=== PATIENT | female | born 1995 | race Caucasian/White ===

== ENCOUNTER 2017-02-26 21:26 | Emergency (ER) | payer BC, OTHER ==
[~2017-02-26] VITALS: Ht 165.1 cm; Wt 70.6 kg
[~2017-02-26 21:26] MED LIST: DPPRI400 INJ
[2017-02-26 21:33] VITALS: TEMP 36.9; Ht 165.1 cm; Wt 70.6 kg
[2017-02-26] MEDS ORDERED: ASPCH81X PO (22:10)
[2017-02-26] MEDS ORDERED: AMPH10TA2 PO (22:10)
[2017-02-26] MEDS ORDERED: MIRT15TA2 PO (22:10)
[2017-02-26] MEDS ORDERED: SERT50TA PO (22:10)
[2017-02-26 22:12] VITALS: O2SAT 99
--- NOTE | 2017-02-26 22:21 | DIAGNOSTIC IMAGING REPORT ---
CHEST ONE VIEW PORTABLE HISTORY: 21 years-old Female CHEST PAIN acute atypical chest pain with drowsiness and numbness of the upper extremities COMPARISON: None available TECHNIQUE: Portable upright AP view of the chest FINDINGS: Cardiomediastinal and hilar silhouettes are within normal limits. There is no pneumothorax, pleural effusion, focal airspace consolidation or overt pulmonary edema. The bones of the chest are grossly intact. IMPRESSION: Normal chest radiograph. The above report was generated using voice recognition software. It may contain grammatical, syntax or spelling errors. Electronically signed by: Ezekiel Chakraborty M.D. 02/26/2017 10:20 PM Dictated Date/Time: 02/26/2017 10:18 PM
[2017-02-26 22:28] LABS: BASO % 0.4 %; BASO ABS # 0.02 K/uL (0-0.2); COMPLETE YES; EOS % 2.5 %; HEMATOCRIT 37.7 % (37-47); IG% 0.4 %; LYMPH % 28.2 %; LYMPH ABS # 1.57 K/uL (1.2-3.4); MEAN CELL VOLUME 89.3 fL (80-100); MEAN CORPUSCULAR HEMOGLOBIN 30.8 pg (25-34); MEAN CORPUSCULAR HGB CONC 34.5 g/dl (32-36); MEAN PLATELET VOLUME 9.5 fL (7.4-10.4); MONO % 7.4 %; NEUT % 61.1 %; PLATELET COUNT 255 K/uL (130-400); RED BLOOD COUNT 4.22 M/uL (4.2-5.4); WHITE BLOOD COUNT 5.56 K/uL (4.8-10.8)
[2017-02-26 22:30] LABS: POINT OF CARE TROPONIN I < 0.030 ng/ml (0-0.045)
[2017-02-26 22:51] LABS: PREG INTERNAL NEGATIVE QC NEG CLEAR BACKGROUND; PREG INTERNAL POSITIVE QC POS CONTROL LINE
[2017-02-26 23:03] LABS: ALT/SGPT 21 U/L (12-78); BLOOD UREA NITROGEN 14 mg/dl (7-18); BUN/CREATININE RATIO 19.6 (10-20); CARBON DIOXIDE 24 mmol/L (21-32); CHLORIDE 108 mmol/L (98-107); CREATININE 0.71 mg/dl (0.60-1.20); GLUCOSE 89 mg/dl (70-99); POTASSIUM 3.5 mmol/L (3.5-5.1); SODIUM 139 mmol/L (136-145)
[2017-02-26 23:09] LABS: ALKALINE PHOSPHATASE 85 U/L (45-117); AST/SGOT 15 U/L (15-37); CKMB/CK RATIO 0.9 (0-3.0)
[2017-02-26 23:44] VITALS: BP 125/86; PULSE 85; O2SAT 100
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
== END 2017-02-26 23:45 ==
LOC: C.EDB 21:27
DX: R07.9 Chest pain, unspecified (principal); R20.2 Paresthesia of skin; R00.0 Tachycardia, unspecified; F17.200 Nicotine dependence, unspecified, uncomplicated; Z87.440 Personal history of urinary (tract) infections; Z79.82 Long term (current) use of aspirin; Z79.899 Other long term (current) drug therapy; Z80.9 Family history of malignant neoplasm, unspecified; Z82.49 Family history of ischemic heart disease and other diseases of the circulatory system